=== PATIENT | female | born 1995 | race Caucasian/White ===

== ENCOUNTER 2018-06-13 11:43 | Emergency (ER) | payer MEDICAID ==
[~2018-06-13] VITALS: Ht 170.2 cm; Wt 98.0 kg
[~2018-06-13 11:43] MED LIST: IBUP200C5
[2018-06-13 11:51] VITALS: BP 142/61
== END 2018-06-14 00:54 | disposition left against medical advice (07) ==
LOC: ER 11:43
DX: Z53.21 Procedure and treatment not carried out due to patient leaving prior to being seen by health care provider (principal)

== ENCOUNTER 2018-09-18 08:51 | Emergency (ER) | payer MEDICAID ==
[~2018-09-18] VITALS: Ht 167.6 cm; Wt 93.0 kg
[2018-09-18] MEDS ORDERED: ACETAMINOPHEN 325MG TABLET PO STA (09:03)
[2018-09-18 09:29] LABS: BASOPHILS % 0.3 % (0.0-2.0); EOSINOPHILS % 1.6 % (0.0-5.0); HEMATOCRIT. 37.3 % (36.0-48.0); LYMPHOCYTES % 15.5 % (20.0-50.0); MEAN CORPUSCULAR HEMOGLOBIN 31.1 pg (28.0-32.0); MEAN CORPUSCULAR VOLUME 89.4 fL (81.0-99.0); MEAN PLATELET VOLUME 7.3 fl (7.4-10.4); MONOCYTES % 4.9 % (2.0-8.0); NEUTROPHILS % 77.7 % (40.0-76.0); PLATELET 313 x1000/uL (130-400); RED BLOOD CELL COUNT 4.17 mill/uL (4.2-5.4); RED CELL DISTRIBUTION WIDTH 12.6 % (11.6-14.6)
[2018-09-18 09:32] LABS: CHLORIDE 109 mEq/L (98-107)
[2018-09-18 09:56] LABS: B-HCG QUANTITATIVE 21672 mIU/mL (<3)
[2018-09-18 10:08] LABS: CLARITY URINE CLOUDY (CLEAR); COLOR URINE YELLOW (YELLOW); KETONES URINE TRACE (NEGATIVE); LEUKOCYTE ESTERASE URINE NEGATIVE (NEGATIVE); NITRITE URINE NEGATIVE (NEGATIVE); OCCULT BLOOD URINE NEGATIVE (NEGATIVE); PH URINE 5.5 (4.5-8.0); PROTEIN URINE 2+ (NEGATIVE); SPECIFIC GRAVITY URINE 1.023 (1.005-1.030)
[2018-09-18 10:40] VITALS: BP 112/62
== END 2018-09-18 10:41 | disposition home or self-care (01) ==
LOC: ER 08:51
DX: O20.0 Threatened abortion (principal); Z3A.16 16 weeks gestation of pregnancy; O26.892 Other specified pregnancy related conditions, second trimester; R03.0 Elevated blood-pressure reading, without diagnosis of hypertension
CPT/HCPCS: 36415; 76805; 81025; 84702; 86850; 86900; 99284

== ENCOUNTER 2019-02-01 10:46 | Inpatient (IN) | payer MEDICAID ==
[~2019-02-01] VITALS: Ht 170.2 cm; Wt 109.8 kg
[2019-02-01] MEDS ORDERED: DEXT 5%/LR + PITOCIN 20UNITS/L 1,000 ML IV SCH (14:39)
[2019-02-01] MEDS ORDERED: METHYLERGONOVINE MALEATE 0.2 MG/ML IM PRN (14:45)
[2019-02-01] MEDS ORDERED: NALOXONE HCL 0.4 MG/ML 1ML VIAL IM PRN (14:45)
[2019-02-01] MEDS ORDERED: CARBOPROST TROMETHAMINE 250 MCG/ML AMPUL IM PRN (14:45)
[2019-02-01] MEDS ORDERED: LIDOCAINE HCL 1% 20ML VIAL (Pyxis) INJ INFIL SCH (14:45)
[2019-02-01] MEDS: MISOPROSTOL 100MCG TABLET VG SCH ×2 (15:28→20:18)
[2019-02-01 15:36] LABS: CLARITY URINE CLOUDY (CLEAR); COLOR URINE YELLOW (YELLOW); KETONES URINE NEGATIVE (NEGATIVE); LEUKOCYTE ESTERASE URINE NEGATIVE (NEGATIVE); NITRITE URINE NEGATIVE (NEGATIVE); OCCULT BLOOD URINE NEGATIVE (NEGATIVE); PROTEIN URINE NEGATIVE (NEGATIVE); SPECIFIC GRAVITY URINE 1.012 (1.005-1.030); UROBILINOGEN URINE 0.2 E.U./dL (0.2-1.0)
[2019-02-01 15:38] LABS: BASOPHILS % 0.1 % (0.0-2.0); EOSINOPHILS % 0.4 % (0.0-5.0); HEMATOCRIT. 37.7 % (36.0-48.0); LYMPHOCYTES % 14.8 % (20.0-50.0); MEAN CORPUSCULAR HEMOGLOBIN 31.8 pg (28.0-32.0); MEAN CORPUSCULAR VOLUME 92.1 fL (81.0-99.0); MEAN PLATELET VOLUME 7.6 fl (7.4-10.4); MONOCYTES % 6.4 % (2.0-8.0); NEUTROPHILS % 78.3 % (40.0-76.0); PLATELET 300 x1000/uL (130-400); RED CELL DISTRIBUTION WIDTH 13.5 % (11.6-14.6)
[2019-02-01 15:50] LABS: INR 0.9; PARTIAL THROMBOPLASTIN TIME 28.5 sec (23.4-31.0); PROTHROMBIN TIME 9.7 sec (9.6-11.0)
[2019-02-01 15:53] LABS: *AMPHETAMINES SCREEN URINE NEGATIVE (NEGATIVE); *BARBITURATES SCREEN URINE NEGATIVE (NEGATIVE); *BENZODIAZEPINES SCREEN URINE NEGATIVE (NEGATIVE); *COCAINE SCREEN URINE NEGATIVE (NEGATIVE); METHADONE URINE SCREEN NEGATIVE (NEGATIVE); OPIATES URINE SCREEN NEGATIVE (NEGATIVE)
[2019-02-01 15:54] LABS: CANNABINOID URINE SCREEN NEGATIVE (NEGATIVE); PHENCYCLIDINE URINE SCREEN NEGATIVE (NEGATIVE)
[2019-02-01] MEDS: LACTATED RINGERS 1,000 ML IV SCH (22:47)
[2019-02-02] MEDS: BUTORPHANOL TARTRATE 2 MG/ML VIAL IV PRN ×2 (00:43→23:59)
[2019-02-02] MEDS ORDERED: BUPIVACAINE HCL/PF 0.25% (2.5MG/ML) 10ML ONE ×2 (01:50→13:52)
[2019-02-02] MEDS ORDERED: FENTANYL CITRATE/PF 50MCG/ML 2ML VIAL ONE (01:50)
[2019-02-02] MEDS ORDERED: SODIUM CHLORIDE 0.9% 10ML VIAL ONE ×2 (01:50→01:51)
[2019-02-02] MEDS ORDERED: EPHEDRINE SULFATE 50MG/ML VIAL ONE (01:51)
[2019-02-02] MEDS ORDERED: ROPIVACAINE HCL 2MG/ML (0.2%) 200ML BOTTLE IR SCH (02:00)
[2019-02-02] MEDS ORDERED: ROPIVACAINE HCL/PF 0.2% (2MG/ML) EPID 200ML EPI SCH (02:01)
[2019-02-02] MEDS: LACTATED RINGERS 1,000 ML IV SCH ×2 (02:24→03:27)
[2019-02-02] MEDS ORDERED: SODIUM BICARBONATE 4% (2.4MEQ) 5ML VIAL IV ONE (13:52)
[2019-02-02] MEDS ORDERED: METHYLERGONOVINE MALEATE 0.2 MG/ML IM PRN (16:00)
[2019-02-02] MEDS ORDERED: CARBOPROST TROMETHAMINE 250 MCG/ML AMPUL IM PRN (16:00)
[2019-02-02] MEDS ORDERED: NALOXONE HCL 0.4 MG/ML 1ML VIAL IM PRN (16:00)
[2019-02-02] MEDS ORDERED: LIDOCAINE HCL 1% 20ML VIAL (Pyxis) INJ INFIL SCH (16:00)
[2019-02-02] MEDS: AMPICILLIN 2,000 MG in SODIUM CHLORIDE 0.9% 100 ML IV SCH ×2 (16:21→21:56)
[2019-02-02] MEDS ORDERED: ROPIVACAINE HCL/PF EPIDURAL 200 ML EPI SCH (18:00)
[2019-02-02] MEDS ORDERED: ONDANSETRON HCL 4MG/2ML INJ IV PRN (22:30)
[2019-02-03] MEDS ORDERED: BUTORPHANOL TARTRATE 2 MG/ML VIAL IV PRN
[2019-02-03] MEDS ORDERED: BUPIVACAINE HCL/PF 0.5% (5MG/ML) 10ML ONE (00:49)
[2019-02-03] MEDS: AMPICILLIN 2,000 MG in SODIUM CHLORIDE 0.9% 100 ML IV SCH (03:54)
[2019-02-03] MEDS ORDERED: ROPIVACAINE HCL/PF EPIDURAL 200 ML EPI SCH (05:00)
[2019-02-03] MEDS ORDERED: METHYLERGONOVINE MALEATE 0.2 MG/ML ONE (05:00)
[2019-02-03] MEDS ORDERED: BUPIVACAINE HCL/PF 0.25% (2.5MG/ML) 10ML ONE (05:10)
[2019-02-03] MEDS ORDERED: MORPHINE SULFATE/PF 1MG/ML 10ML AMP ONE (09:43)
[2019-02-03] MEDS ORDERED: MIDAZOLAM HCL 2 MG/2 ML VIAL ONE (09:46)
[2019-02-03] MEDS ORDERED: MEPERIDINE HCL/PF 25MG/ML CPJ IV PRN (10:00)
[2019-02-03] MEDS ORDERED: LABETALOL 5MG/ML SYR 20 MG/4 ML SYRINGE IV PRN (10:00)
[2019-02-03] MEDS ORDERED: HYDROMORPHONE HCL/PF 2MG/ML CPJ IV PRN (10:00)
[2019-02-03] MEDS ORDERED: ONDANSETRON HCL 4MG/2ML INJ IV PRN ×2 (10:00→10:15)
[2019-02-03] MEDS ORDERED: DEXT 5%/LR + PITOCIN 20UNITS/L 1,000 ML IV SCH (10:06)
[2019-02-03] MEDS ORDERED: LANOLIN OINT 7GM TUBE TOP PRN (10:15)
[2019-02-03] MEDS ORDERED: RHO(D) IMMUNE GLOBULIN 300 MCG/SYR IM PRN (10:15)
[2019-02-03] MEDS ORDERED: HYDROCODONE/ACETAMINOPHEN 5/325MG TABLET PO PRN (10:15)
[2019-02-03] MEDS ORDERED: BISACODYL 10MG SUPP PR PRN (10:15)
[2019-02-03 13:30] VITALS: BP 136/71
[2019-02-03 14:30] VITALS: BP 129/71
[2019-02-03 19:15] VITALS: BP 123/65
[2019-02-03] MEDS: LACTATED RINGERS 1,000 ML IV SCH (20:58)
[2019-02-03] MEDS: DOCUSATE SODIUM 100MG CAPSULE PO SCH (21:00)
[2019-02-03 23:58] VITALS: BP 106/55
[2019-02-04 04:00] VITALS: BP 108/51
[2019-02-04] MEDS: ACETAMINOPHEN WITH CODEINE 300/30MG TABLET PO PRN (04:22)
[2019-02-04 07:16] LABS: BASOPHILS % 0.1 % (0.0-2.0); EOSINOPHILS % 0.3 % (0.0-5.0); HEMOGLOBIN. 10.3 g/dL (12.0-16.0); LYMPHOCYTES % 7.4 % (20.0-50.0); MEAN CORPUSCULAR HEMOGLOBIN 31.7 pg (28.0-32.0); MEAN CORPUSCULAR VOLUME 92.6 fL (81.0-99.0); MEAN PLATELET VOLUME 7.7 fl (7.4-10.4); MONOCYTES % 6.6 % (2.0-8.0); NEUTROPHILS % 85.6 % (40.0-76.0); PLATELET 246 x1000/uL (130-400); RED BLOOD CELL COUNT 3.24 mill/uL (4.2-5.4); RED CELL DISTRIBUTION WIDTH 13.7 % (11.6-14.6)
[2019-02-04 08:50] VITALS: BP 127/77
[2019-02-04 16:20] VITALS: BP 136/80
[2019-02-04 19:25] VITALS: BP 129/86
[2019-02-04] MEDS: DOCUSATE SODIUM 100MG CAPSULE PO SCH (22:27)
[2019-02-04] MEDS ORDERED: BISACODYL 5MG TABLET PO PRN (23:00)
[2019-02-04 23:30] VITALS: BP 130/85
[2019-02-05 07:45] VITALS: BP 136/86
[2019-02-05] MEDS: PRENATAL VIT/FE FUMARATE/FA TABLET PO SCH (09:00)
[2019-02-05] MEDS: DOCUSATE SODIUM 100MG CAPSULE PO SCH ×2 (10:06→21:00)
[2019-02-05] MEDS: IBUPROFEN 400MG TABLET PO PRN ×2 (10:07→17:43)
[2019-02-05 15:00] VITALS: BP 134/84
[2019-02-05 19:30] VITALS: BP 126/73
[2019-02-05] MEDS: LACTATED RINGERS 1,000 ML IV SCH (22:31)
[2019-02-05] MEDS ORDERED: TETANUS, DIPHTHERIA, PERTUSSIS VAC/PF 0.5ML (>7YR OLD) IM ONE (23:30)
[2019-02-05] MEDS ORDERED: INFLUENZA VIRUS VACCINE(AFLURIA) 0.5ML SYR IM ONE (23:30)
[2019-02-06 04:00] VITALS: BP 130/80
[2019-02-06] MEDS: ACETAMINOPHEN WITH CODEINE 300/30MG TABLET PO PRN (06:06)
[2019-02-06] MEDS ORDERED: FERR325T6 MT (06:55)
[2019-02-06] MEDS ORDERED: IBUP-2030 MT (06:55)
[2019-02-06] MEDS ORDERED: MULT-1116 MT (06:56)
[2019-02-06 07:30] VITALS: BP 124/77
[2019-02-06] MEDS: PRENATAL VIT/FE FUMARATE/FA TABLET PO SCH (10:54)
[2019-02-06] MEDS: IBUPROFEN 400MG TABLET PO PRN (10:55)
== END 2019-02-06 13:00 | disposition home or self-care (01) | DRG 540 ==
LOC: OBSVTOIN 10:46 → 8 EST LDRP 10:46 → 8EST 02-03 13:15
PROVIDERS: ADMIT Obstetrics & Gynecology; ATTEND Obstetrics & Gynecology
PROC: 10D00Z1 Extraction of Products of Conception, Low, Open Approach (ICD-10-PCS; principal; 2019-02-03)
DX: O41.03X0 Oligohydramnios, third trimester, not applicable or unspecified (principal); E66.9 Obesity, unspecified; D64.9 Anemia, unspecified; O99.214 Obesity complicating childbirth; O90.81 Anemia of the puerperium; Z37.0 Single live birth; Z3A.38 38 weeks gestation of pregnancy
CPT/HCPCS: 36415; 76805; 76818; 80305; 81003; 84520; 86592; 86703; 86850; 86900; 87340; 88307; 90686; 90715; G0378; J0290; J0595; J2210; J2250; J2274; J2405; J2590; J2795; J3010; J3490; J7050; A4315